=== PATIENT | female | born 1995 | race Caucasian/White ===

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

== ENCOUNTER → 2021-03-01 | Outpatient (CLI) | payer BC | LOC: COL.RAD 09:14 | DX: K76.0 Fatty (change of) liver, not elsewhere classified (principal) ==

== ENCOUNTER → 2021-03-09 | Outpatient (CLI) | payer BC | LOC: COL.RAD 09:43 | DX: R10.11 Right upper quadrant pain (principal) | CPT/HCPCS: A9537; J2805 ==